=== PATIENT | female | born 1980 | race Two or more races ===

== ENCOUNTER → 2020-03-09 12:35 | Outpatient (BNVA) | payer OTHER, SELFPAY | PROVIDERS: PCP Pediatrics; Visit Provider Physician Assistant | DX: K91.2 Postsurgical malabsorption, not elsewhere classified (principal); Z90.3 Acquired absence of stomach [part of] | CPT/HCPCS: 99202 ==

== ENCOUNTER 2020-03-11 08:20 | Outpatient (REF) | payer OTHER, SELFPAY ==
[2020-03-11 10:05] LABS: MANUAL DIFF FLAG NO
[2020-03-11 10:09] LABS: Basophils Percent Auto 0.5 % (0-2); Eosinophils Absolute Auto 0.1 X10*3/uL (0.0-0.4); Eosinophils Percent Auto 1.5 % (0-4); Hematocrit 40.5 % (37-47); Hemoglobin 13.5 g/dl (12.0-16.0); Imm Gran Abs Auto 0.01 X10*3/uL (0.00-0.03); Imm Gran Pct Auto 0.2 % (0.0-0.4); Lymphocytes Percent Auto 33.9 % (20-40); Mean Corpuscular HGB Conc 33.3 g/dl (31.0-35.0); Mean Corpuscular Hemoglobin 29.7 pg (27.0-33.0); Mean Platelet Volume 9.5 fL (9.4-12.3); Monocytes Absolute Auto 0.3 X10*3/uL (0.1-1.2); Monocytes Percent Auto 4.3 % (2-11); Neutrophils Absolute Auto 3.5 X10*3/uL (2.0-8.3); Neutrophils Percent Auto 59.6 % (45-73); Platelet Count 302 X10*3/uL (160-400); Red Blood Count 4.55 X10*6/uL (4.20-5.50); Red Cell Distribution Width 11.7 % (11.0-16.0); White Blood Count 5.8 X10*3/uL (4.8-10.8)
[2020-03-11 10:22] LABS: Estimated Average Glucose 94 mg/dL; Hemoglobin A1c % 4.9 %
[2020-03-11 10:44] LABS: Alanine Aminotransferase 9 U/L (0-31); Albumin Level 4.7 g/dL (3.5-5.0); Alkaline Phosphatase 83 U/L (39-117); Anion Gap 16 (12-20); Aspartate Amino Transferase 16 U/L (5-31); Bilirubin Total 0.6 mg/dL (0.0-1.0); Blood Urea Nitrogen 8 mg/dL (9-16); C Reactive Protein 0.25 mg/dL (< or = 0.50); Calcium 9.3 mg/dL (8.4-10.2); Carbon Dioxide 25 mmol/L (22-29); Chloride 102 mmol/L (96-108); Cholesterol 192 mg/dL; Estimated Glomerular Filt Rate > 60; Glucose Fasting 91 mg/dL (60-99); HDL Cholesterol 82 mg/dL; Iron 108 mcg/dL (30-160); LDL Cholesterol Calculated 95 mg/dl; Percent Iron Saturation 29 % (15-50); Sodium 139 mmol/L (135-145); Total Iron Binding Capacity 374 mcg/dL (228-428); Total Protein 8.4 g/dL (6.5-8.0); Triglycerides 76 mg/dL; Unsaturated Iron Binding 266 ug/dL
[2020-03-11 11:03] LABS: Vitamin D 25-OH Total 20.6 ng/mL (>30)
[2020-03-11 11:08] LABS: Folate 6.9 ng/mL (> or = 4.0); Vitamin B12 1684 pg/mL (200-900)
[2020-03-11 11:33] LABS: Ferritin 76 ng/mL (10-122)
[2020-03-14 17:13] LABS: Calcium (PTHI) 9.8 mg/dL (8.6-10.2); PTHI 49 pg/mL (14-64)
[2020-03-14 17:56] LABS: Insulin Level Total 4.8 uIU/mL
[2020-03-15 06:47] LABS: Zinc 85 mcg/dL (60-130)
[2020-03-16 05:57] LABS: Vitamin B1 7 nmol/L (8-30)
[2020-03-17 13:23] LABS: Vitamin A 32 mcg/dL (38-98)
== END 2020-03-11 08:21 | disposition home or self-care (01) ==
LOC: HO.LAB 08:20
PROVIDERS: Absent Provider Physician Assistant; PCP Pediatrics; Visit Provider Dietitian, Registered
DX: K91.2 Postsurgical malabsorption, not elsewhere classified (principal); Z90.3 Acquired absence of stomach [part of]; Z98.84 Bariatric surgery status
CPT/HCPCS: 36415; 80053; 80061; 82306; 82607; 82728; 82746; 83036; 83525; 83540; 83970; 84425; 84443; 84590; 84630; 85025; 86140

== ENCOUNTER → 2020-03-23 08:11 | Outpatient (BNVA) | payer OTHER, SELFPAY | PROVIDERS: PCP Pediatrics; Visit Provider Dietitian, Registered ==

== ENCOUNTER 2020-06-02 09:48 | Outpatient (REF) | payer OTHER, SELFPAY ==
[2020-06-02 17:15] LABS: Vitamin D 25-OH Total 26.5 ng/mL (>30)
[2020-06-02 17:25] LABS: Folate 9.2 ng/mL (> or = 4.0); Vitamin B12 849 pg/mL (200-900)
[2020-06-06 06:27] LABS: Vitamin B1 7 nmol/L (8-30)
[2020-06-06 12:21] LABS: Vitamin A 44 mcg/dL (38-98)
== END 2020-06-02 09:49 | disposition home or self-care (01) ==
LOC: HO.LAB 09:48
PROVIDERS: PCP Pediatrics; Visit Provider Physician Assistant
DX: K91.2 Postsurgical malabsorption, not elsewhere classified (principal); E56.9 Vitamin deficiency, unspecified; Z90.3 Acquired absence of stomach [part of]; Z98.84 Bariatric surgery status
CPT/HCPCS: 36415; 82306; 82607; 82746; 84425; 84590

== ENCOUNTER → 2020-07-14 07:49 | Outpatient (BNVA) | payer OTHER, SELFPAY | PROVIDERS: PCP Pediatrics; Visit Provider Internal Medicine Endocrinology, Diabetes & Metabolism | DX: L68.0 Hirsutism (principal) | CPT/HCPCS: 99202 ==

== ENCOUNTER → 2020-11-03 08:04 | Outpatient (BNVA) | payer OTHER, SELFPAY | PROVIDERS: PCP Pediatrics; Visit Provider Dietitian, Registered | DX: Z98.84 Bariatric surgery status (principal) | CPT/HCPCS: 97803 ==

== ENCOUNTER 2021-03-09 15:54 | Outpatient (REF) | payer OTHER, SELFPAY ==
[2021-03-09 17:10] LABS: MANUAL DIFF FLAG NO
[2021-03-09 17:28] LABS: Basophils Percent Auto 0.3 % (0-2); Eosinophils Absolute Auto 0.2 X10*3/uL (0.0-0.4); Hematocrit 39.5 % (37.0-47.0); Hemoglobin 13.1 g/dl (12.0-16.0); Imm Gran Abs Auto 0.03 X10*3/uL (0.00-0.03); Imm Gran Pct Auto 0.3 % (0.0-0.4); Mean Corpuscular HGB Conc 33.2 g/dl (31.0-35.0); Mean Corpuscular Hemoglobin 30.3 pg (27.0-33.0); Mean Corpuscular Volume 91.2 fL (80.0-98.0); Mean Platelet Volume 10.2 fL (9.4-12.3); Monocytes Absolute Auto 0.4 X10*3/uL (0.1-1.2); Monocytes Percent Auto 4.2 % (2-11); Neutrophils Absolute Auto 5.7 x10*3/uL (2.0-8.3); Neutrophils Percent Auto 61.2 % (45-73); Platelet Count 218 X10*3/uL (160-400); Red Blood Count 4.33 X10*6/uL (4.20-5.50); Red Cell Distribution Width 12.5 % (11.0-16.0); White Blood Count 9.3 X10*3/uL (4.8-10.8)
[2021-03-09 17:44] LABS: Anion Gap 11 (12-20); Blood Urea Nitrogen 9 mg/dL (9-16); Calcium 9.5 mg/dL (8.4-10.2); Carbon Dioxide 27 mmol/L (22-29); Chloride 106 mmol/L (96-108); Estimated Glomerular Filt Rate > 60; Glucose Random 78 mg/dL (60-115); Iron 108 mcg/dL (30-160); Percent Iron Saturation 29 % (15-50); Potassium 3.9 mmol/L (3.3-5.1); Sodium 140 mmol/L (135-145); Total Iron Binding Capacity 372 mcg/dL (228-428); Triglycerides 65 mg/dL; Unsaturated Iron Binding 264 ug/dL
[2021-03-09 17:45] LABS: Cholesterol 199 mg/dL; HDL Cholesterol 74 mg/dL; LDL Cholesterol Calculated 112 mg/dl
[2021-03-09 17:46] LABS: Estimated Average Glucose 94 mg/dL; Hemoglobin A1c % 4.9 %
[2021-03-09 18:05] LABS: Ferritin 228 ng/mL (10-250); TSH reflex Free T4 0.48 uIU/mL (0.32-4.0); Vitamin D 25-OH Total 18.7 ng/mL (>30)
[2021-03-09 18:27] LABS: Folate 6.8 ng/mL (> or = 4.0); Vitamin B12 > 2000 pg/mL (200-900)
[2021-03-10 12:21] LABS: Calcium (PTHI) 9.1 mg/dL (8.6-10.2); PTHI 83 pg/mL (14-64)
[2021-03-14 01:27] LABS: Zinc 53 mcg/dL (60-130)
[2021-03-16 00:20] LABS: Vitamin A 37 mcg/dL (38-98)
[2021-03-16 12:22] LABS: Vitamin B1 6 nmol/L (8-30)
== END 2021-03-09 15:55 | disposition home or self-care (01) ==
LOC: HO.LAB 15:54
PROVIDERS: PCP Pediatrics; Visit Provider Physician Assistant Surgical
DX: K91.2 Postsurgical malabsorption, not elsewhere classified (principal); L65.9 Nonscarring hair loss, unspecified; Z90.3 Acquired absence of stomach [part of]; Z79.899 Other long term (current) drug therapy
CPT/HCPCS: 36415; 80048; 80061; 82306; 82607; 82728; 82746; 83036; 83540; 83970; 84425; 84443; 84590; 84630; 85025; 99212

== ENCOUNTER → 2021-04-12 08:23 | Outpatient (BNVA) | payer OTHER, SELFPAY | PROVIDERS: PCP Pediatrics; Visit Provider Physician Assistant Surgical | DX: K91.2 Postsurgical malabsorption, not elsewhere classified (principal); Z90.3 Acquired absence of stomach [part of] ==

== ENCOUNTER 2023-01-16 11:42 | Outpatient (AMB) | payer OTHER, SELFPAY ==
--- NOTE | 2023-01-16 11:43 | A.OFFVIS_ITS ---
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 No complications after surgery, had follow up with the clinic over the phone. Called and emailed her every week. Liquid diet for a month, then advanced diet. Last seen in the office in April 2021. At that time, she had a stable weight and was going to follow-up with her primary care physician and chinese medicine practitioner. Since last being seen, she has done well and is looking to get yearly labs done. She has no complaints at this time. She is followed by [facility] hematology for iron deficiency and her last infusion was about a year ago. 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 Surgical History History of sleeve gastrectomy Family History Father Diabetes mellitus Hypertension Mother Pre-diabetes Emotional hypersensitivity Sister Asthma Sister Diabetes mellitus Son Asthma Daughter Autism Social History Alcohol intake: current Alcohol intake frequency: holidays/special occasions only Patient Tobacco Use Status: Never used Tobacco Review of Systems Const All systems reviewed & are unremarkable except as noted in HPI and below Physical Exam Const General: healthy appearing and no acute distress Resp Effort & Inspection: normal respiratory effort Auscultation: clear to auscultation bilaterally Cardio Rate: regular rate Rhythm: regular rhythm GI Auscultation: normal bowel sounds Extrem General: Yes normal to inspection Assessment & Plan Assessment & Plan (1) S/P laparoscopic sleeve gastrectomy: Code(s): Z98.84 - Bariatric surgery status Plan: Status post sleeve gastrectomy performed in [place] in 2018. She returns to the office for follow-up as she is requesting follow up labs, yearly. She is doing well. Continue meal plan and exercise plan rtc 1 year Orders: Orders Lipid Panel Today E51.9 - Thiamine deficiency, unspecified, K91.2 - Postsurgical malabsorption, not elsewhere classified, Z90.3 - Acquired absence of stomach [part of], Z98.84 - Bariatric surgery status Vitamin B12 and Folate Today E51.9 - Thiamine deficiency, unspecified, K91.2 - Postsurgical malabsorption, not elsewhere classified, Z90.3 - Acquired absence of stomach [part of], Z98.84 - Bariatric surgery status Vitamin A Today E51.9 - Thiamine deficiency, unspecified, K91.2 - Postsurgical malabsorption, not elsewhere classified, Z90.3 - Acquired absence of stomach [part of], Z98.84 - Bariatric surgery status C Reactive Protein Today E51.9 - Thiamine deficiency, unspecified, K91.2 - Postsurgical malabsorption, not elsewhere classified, Z90.3 - Acquired absence of stomach [part of], Z98.84 - Bariatric surgery status PTHI Today E51.9 - Thiamine deficiency, unspecified, K91.2 - Postsurgical malabsorption, not elsewhere classified, Z90.3 - Acquired absence of stomach [part of], Z98.84 - Bariatric surgery status Insulin Today E51.9 - Thiamine deficiency, unspecified, K91.2 - Postsurgical malabsorption, not elsewhere classified, Z90.3 - Acquired absence of stomach [part of], Z98.84 - Bariatric surgery status IRON PROFILE Today E51.9 - Thiamine deficiency, unspecified, K91.2 - Postsurgical malabsorption, not elsewhere classified, Z90.3 - Acquired absence of stomach [part of], Z98.84 - Bariatric surgery status Complete Blood Count Auto Diff Today E51.9 - Thiamine deficiency, unspecified, K91.2 - Postsurgical malabsorption, not elsewhere classified, Z90.3 - Acquired absence of stomach [part of], Z98.84 - Bariatric surgery status Zinc Today E51.9 - Thiamine deficiency, unspecified, K91.2 - Postsurgical malabsorption, not elsewhere classified, Z90.3 - Acquired absence of stomach [part of], Z98.84 - Bariatric surgery status Vitamin B1 Today E51.9 - Thiamine deficiency, unspecified, K91.2 - Postsurgical malabsorption, not elsewhere classified, Z90.3 - Acquired absence of stomach [part of], Z98.84 - Bariatric surgery status Ferritin Today E51.9 - Thiamine deficiency, unspecified, K91.2 - Postsurgical malabsorption, not elsewhere classified, Z90.3 - Acquired absence of stomach [part of], Z98.84 - Bariatric surgery status TSH reflex Free T4 Today E51.9 - Thiamine deficiency, unspecified, K91.2 - Postsurgical malabsorption, not elsewhere classified, Z90.3 - Acquired absence of stomach [part of], Z98.84 - Bariatric surgery status Vitamin D 25-OH Total Today E51.9 - Thiamine deficiency, unspecified, K91.2 - Postsurgical malabsorption, not elsewhere classified, Z90.3 - Acquired absence of stomach [part of], Z98.84 - Bariatric surgery status Hemoglobin A1c Today E51.9 - Thiamine deficiency, unspecified, K91.2 - Postsurgical malabsorption, not elsewhere classified, Z90.3 - Acquired absence of stomach [part of], Z98.84 - Bariatric surgery status Basic Metabolic Panel Today E51.9 - Thiamine deficiency, unspecified, K91.2 - Postsurgical malabsorption, not elsewhere classified, Z90.3 - Acquired absence of stomach [part of], Z98.84 - Bariatric surgery status Coding Level of Care Code Est Pt Level 3 (69285) Diagnoses S/P laparoscopic sleeve gastrectomy Z98.84
[2023-01-16 11:51] VITALS: BP 131/61; PULSE 83; TEMP 36.3; O2SAT 96; BMI 24.0
== END 2023-01-16 12:14 | disposition home or self-care (01) ==
PROVIDERS: PCP Pediatrics; Visit Provider Physician Assistant Surgical
DX: K91.2 Postsurgical malabsorption, not elsewhere classified (principal); Z90.3 Acquired absence of stomach [part of]; Z98.84 Bariatric surgery status
CPT/HCPCS: 99213

== ENCOUNTER → 2023-01-16 11:42 | Outpatient (BNVA) | payer OTHER, SELFPAY | PROVIDERS: PCP Pediatrics; Visit Provider Physician Assistant Surgical | DX: Z98.84 Bariatric surgery status (principal) | CPT/HCPCS: 99212 ==

== ENCOUNTER 2023-01-30 09:02 | Outpatient (REF) | payer OTHER, SELFPAY ==
[2023-01-30 09:46] LABS: MANUAL DIFF FLAG NO
[2023-01-30 09:57] LABS: Basophils Percent Auto 0.5 % (0-2); Eosinophils Absolute Auto 0.1 X10*3/uL (0.0-0.4); Eosinophils Percent Auto 1.3 % (0-4); Hematocrit 40.3 % (37.0-47.0); Hemoglobin 13.4 g/dl (12.0-16.0); Imm Gran Abs Auto 0.01 X10*3/uL (0.00-0.03); Imm Gran Pct Auto 0.2 % (0.0-0.4); Lymphocytes Percent Auto 33.9 % (20-40); Mean Corpuscular HGB Conc 33.3 g/dl (31.0-35.0); Mean Corpuscular Hemoglobin 29.3 pg (27.0-33.0); Mean Corpuscular Volume 88.2 fL (80.0-98.0); Mean Platelet Volume 8.8 fL (9.4-12.3); Monocytes Absolute Auto 0.4 X10*3/uL (0.1-1.2); Monocytes Percent Auto 6.2 % (2-11); Neutrophils Absolute Auto 3.5 x10*3/uL (2.0-8.3); Neutrophils Percent Auto 57.9 % (45-73); Platelet Count 318 X10*3/uL (160-400); Red Blood Count 4.57 X10*6/uL (4.20-5.50); Red Cell Distribution Width 12.3 % (11.0-16.0)
[2023-01-30 10:42] LABS: Estimated Average Glucose 97 mg/dL; Hemoglobin A1C 111.0874 umol/L
[2023-01-30 10:56] LABS: Anion Gap 10 (12-20); Blood Urea Nitrogen 8 mg/dL (9-16); Calcium 9.1 mg/dL (8.4-10.2); Carbon Dioxide 30 mmol/L (22-29); Chloride 103 mmol/L (96-108); Cholesterol 206 mg/dL (<200); Estimated Glomerular Filt Rate > 60; Glucose Random 89 mg/dL (60-115); HDL Cholesterol 69 mg/dL (>40); Iron 98 mcg/dL (30-160); LDL Cholesterol Calculated 121 mg/dL (<100); Percent Iron Saturation 31 % (15-50); Potassium 3.6 mmol/L (3.3-5.1); Sodium 139 mmol/L (135-145); Total Iron Binding Capacity 314 mcg/dL (228-428); Triglycerides 80 mg/dL (<150); Unsaturated Iron Binding 216 ug/dL
[2023-01-30 11:07] LABS: Folate 7.8 ng/mL (> or = 4.0); Vitamin B12 1567 pg/mL (200-900)
[2023-01-30 11:28] LABS: Ferritin 121 ng/mL (10-250); TSH reflex Free T4 0.83 uIU/mL (0.32-4.0); Vitamin D 25-OH Total 16.8 ng/mL (>30)
[2023-01-30 12:01] LABS: Insulin 6 uU/mL (2-29)
[2023-02-01 15:54] LABS: Zinc 76 mcg/dL (60-130)
[2023-02-02 22:24] LABS: Vitamin A 38 mcg/dL (38-98)
[2023-02-03 12:18] LABS: Vitamin B1 6 nmol/L (8-30)
== END 2023-01-30 09:03 | disposition home or self-care (01) ==
LOC: HO.LAB 09:02
PROVIDERS: Visit Provider Physician Assistant Surgical
DX: E51.9 Thiamine deficiency, unspecified (principal); K91.2 Postsurgical malabsorption, not elsewhere classified; Z90.3 Acquired absence of stomach [part of]; Z98.84 Bariatric surgery status
CPT/HCPCS: 36415; 80048; 80061; 82306; 82607; 82728; 82746; 83036; 83525; 83540; 84425; 84443; 84590; 84630; 85025; 86140

== ENCOUNTER 2024-02-12 09:30 | Outpatient (AMB) | payer OTHER, SELFPAY ==
--- NOTE | 2024-02-12 09:09 | A.OFFVIS_ITS ---
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 No complications after surgery, had follow up with the clinic over the phone. Called and emailed her every week. Liquid diet for a month, then advanced diet. Weight today is 135.3 pounds with a BMI of 23.9 Since last being seen, she has done well and is looking to get yearly labs done. She has no complaints at this time. She is followed by [facility] hematology for iron deficiency and her last infusion was about a year ago. 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 Surgical History History of sleeve gastrectomy Family History Father Diabetes mellitus Hypertension Mother Pre-diabetes Emotional hypersensitivity Sister Asthma Sister Diabetes mellitus Son Asthma Daughter Autism Social History Alcohol intake: current Alcohol intake frequency: holidays/special occasions only Patient Tobacco Use Status: Never used Tobacco Telehealth Telehealth Telehealth Platform: Telephone Location of provider rendering services: practice address Location of patient: address on file Patient Identification confirmed using: Name, : Yes Telehealth method: voice only Patient verbally consented to treatment: Yes Patient verbally consented to billing insurance company: Yes Patient informed of any privacy concerns related to visit: Yes Minutes spent on Phone/Video with Pt.: 15 Assessment & Plan Assessment & Plan (1) S/P laparoscopic sleeve gastrectomy: Code(s): Z98.84 - Bariatric surgery status Category: Surgical Plan: Patient is doing very well, maintaining a stable and healthy weight. Check 1 year follow-up labs as she has a proximally 6 years 6 months post sleeve gastrectomy performed at an outside institution. She is taking a multivitamin daily although no further vitamin supplements. Should she show any further vitamin deficiencies, we will alert her and prescribed as indicated. Orders: Orders Insulin Today E51.9 - Thiamine deficiency, unspecified, E56.9 - Vitamin deficiency, unspecified, K91.2 - Postsurgical malabsorption, not elsewhere classified, Z90.3 - Acquired absence of stomach [part of], Z98.84 - Bariatric surgery status IRON PROFILE Today E51.9 - Thiamine deficiency, unspecified, E56.9 - Vitamin deficiency, unspecified, K91.2 - Postsurgical malabsorption, not elsewhere classified, Z90.3 - Acquired absence of stomach [part of], Z98.84 - Bariatric surgery status Comprehensive Met. Panel Today E51.9 - Thiamine deficiency, unspecified, E56.9 - Vitamin deficiency, unspecified, K91.2 - Postsurgical malabsorption, not elsewhere classified, Z90.3 - Acquired absence of stomach [part of], Z98.84 - Bariatric surgery status Vitamin A Today E51.9 - Thiamine deficiency, unspecified, E56.9 - Vitamin deficiency, unspecified, K91.2 - Postsurgical malabsorption, not elsewhere classified, Z90.3 - Acquired absence of stomach [part of], Z98.84 - Bariatric surgery status TSH reflex Free T4 Today E51.9 - Thiamine deficiency, unspecified, E56.9 - Vitamin deficiency, unspecified, K91.2 - Postsurgical malabsorption, not elsewhere classified, Z90.3 - Acquired absence of stomach [part of], Z98.84 - Bariatric surgery status Hemoglobin A1c Today E51.9 - Thiamine deficiency, unspecified, E56.9 - Vitamin deficiency, unspecified, K91.2 - Postsurgical malabsorption, not elsewhere classified, Z90.3 - Acquired absence of stomach [part of], Z98.84 - Bariatric surgery status Complete Blood Count Auto Diff Today E51.9 - Thiamine deficiency, unspecified, E56.9 - Vitamin deficiency, unspecified, K91.2 - Postsurgical malabsorption, not elsewhere classified, Z90.3 - Acquired absence of stomach [part of], Z98.84 - Bariatric surgery status Lipid Panel Today E51.9 - Thiamine deficiency, unspecified, E56.9 - Vitamin deficiency, unspecified, K91.2 - Postsurgical malabsorption, not elsewhere clas sified, Z90.3 - Acquired absence of stomach [part of], Z98.84 - Bariatric surgery status Vitamin B12 and Folate Today E51.9 - Thiamine deficiency, unspecified, E56.9 - Vitamin deficiency, unspecified, K91.2 - Postsurgical malabsorption, not elsewhere classified, Z90.3 - Acquired absence of stomach [part of], Z98.84 - Bariatric surgery status Zinc Today E51.9 - Thiamine deficiency, unspecified, E56.9 - Vitamin deficiency, unspecified, K91.2 - Postsurgical malabsorption, not elsewhere classified, Z90.3 - Acquired absence of stomach [part of], Z98.84 - Bariatric surgery status C Reactive Protein Today E51.9 - Thiamine deficiency, unspecified, E56.9 - Vitamin deficiency, unspecified, K91.2 - Postsurgical malabsorption, not elsewhere classified, Z90.3 - Acquired absence of stomach [part of], Z98.84 - Bariatric surgery status Vitamin B1 Today E51.9 - Thiamine deficiency, unspecified, E56.9 - Vitamin deficiency, unspecified, K91.2 - Postsurgical malabsorption, not elsewhere classified, Z90.3 - Acquired absence of stomach [part of], Z98.84 - Bariatric surgery status Ferritin Today E51.9 - Thiamine deficiency, unspecified, E56.9 - Vitamin deficiency, unspecified, K91.2 - Postsurgical malabsorption, not elsewhere classified, Z90.3 - Acquired absence of stomach [part of], Z98.84 - Bariatric surgery status Vitamin D 25-OH Total Today E51.9 - Thiamine deficiency, unspecified, E56.9 - Vitamin deficiency, unspecified, K91.2 - Postsurgical malabsorption, not elsewhere classified, Z90.3 - Acquired absence of stomach [part of], Z98.84 - Bariatric surgery status
[2024-02-12 09:34] VITALS: BMI 23.9
== END 2024-02-12 09:54 | disposition home or self-care (01) ==
LOC: HO.HBS 09:42
PROVIDERS: PCP Pediatrics; Visit Provider Physician Assistant Surgical
DX: E51.9 Thiamine deficiency, unspecified (principal); E56.9 Vitamin deficiency, unspecified; K91.2 Postsurgical malabsorption, not elsewhere classified; Z98.84 Bariatric surgery status
CPT/HCPCS: 99213; G2211

== ENCOUNTER → 2024-02-12 09:30 | Outpatient (BNVA) | payer OTHER, SELFPAY | PROVIDERS: PCP Pediatrics; Visit Provider Physician Assistant Surgical | DX: K91.2 Postsurgical malabsorption, not elsewhere classified (principal); Z90.3 Acquired absence of stomach [part of]; E51.9 Thiamine deficiency, unspecified; E56.9 Vitamin deficiency, unspecified; Z98.84 Bariatric surgery status ==

== ENCOUNTER 2024-02-22 10:06 | Outpatient (REF) | payer OTHER, SELFPAY ==
[2024-02-22 10:36] LABS: MANUAL DIFF FLAG NO
[2024-02-22 10:39] LABS: Basophils Percent Auto 0.3 % (0-2); Eosinophils Absolute Auto 0.1 X10*3/uL (0.0-0.4); Eosinophils Percent Auto 0.6 % (0-4); Hematocrit 35.3 % (37.0-47.0); Hemoglobin 11.7 g/dl (12.0-16.0); Imm Gran Abs Auto 0.02 X10*3/uL (0.00-0.03); Imm Gran Pct Auto 0.2 % (0.0-0.4); Lymphocytes Absolute Auto 1.9 X10*3/uL (1.2-4.9); Lymphocytes Percent Auto 20.2 % (20-40); Mean Corpuscular HGB Conc 33.1 g/dl (31.0-35.0); Mean Corpuscular Hemoglobin 29.7 pg (27.0-33.0); Mean Corpuscular Volume 89.6 fL (80.0-98.0); Monocytes Absolute Auto 0.5 X10*3/uL (0.1-1.2); Monocytes Percent Auto 4.7 % (2-11); Neutrophils Absolute Auto 7.1 x10*3/uL (2.0-8.3); Platelet Count 268 X10*3/uL (160-400); Red Blood Count 3.94 X10*6/uL (4.20-5.50); White Blood Count 9.5 X10*3/uL (4.8-10.8)
[2024-02-22 10:48] LABS: Estimated Average Glucose 88 mg/dL; Hemoglobin A1C 87.2443 umol/L; Hemoglobin A1c % 4.7 % (<6.0)
[2024-02-22 10:55] LABS: Alanine Aminotransferase 15 U/L (0-31); Albumin Level 4.3 g/dL (3.5-5.0); Alkaline Phosphatase 85 U/L (39-117); Anion Gap 12 (12-20); Aspartate Amino Transferase 22 U/L (5-31); Bilirubin Total 0.7 mg/dL (0.0-1.0); Blood Urea Nitrogen 6 mg/dL (9-16); C Reactive Protein 0.64 mg/dL (< or = 0.50); Calcium 8.6 mg/dL (8.4-10.2); Carbon Dioxide 26 mmol/L (22-29); Chloride 106 mmol/L (96-108); Cholesterol 169 mg/dL (<200); Estimated Glomerular Filt Rate > 60; Glucose Random 74 mg/dL (60-115); HDL Cholesterol 75 mg/dL (>40); Iron 73 mcg/dL (30-160); LDL Cholesterol Calculated 82 mg/dL (<100); Percent Iron Saturation 24 % (15-50); Potassium 3.5 mmol/L (3.3-5.1); Sodium 140 mmol/L (135-145); Total Iron Binding Capacity 304 mcg/dL (228-428); Total Protein 7.8 g/dL (6.5-8.0); Triglycerides 64 mg/dL (<150); Unsaturated Iron Binding 231 ug/dL
[2024-02-22 11:18] LABS: Ferritin 94 ng/mL (10-250); TSH reflex Free T4 0.52 uIU/mL (0.32-4.0); Vitamin D 25-OH Total 14.6 ng/mL (>30)
[2024-02-22 11:28] LABS: Insulin 4 uU/mL (2-29)
[2024-02-22 11:29] LABS: Folate 3.8 ng/mL (> or = 4.0); Vitamin B12 491 pg/mL (200-900)
[2024-02-26 03:14] LABS: Zinc 83 mcg/dL (60-130)
[2024-02-26 18:39] LABS: Vitamin A 36 mcg/dL (38-98)
[2024-02-29 07:43] LABS: Vitamin B1 7 nmol/L (8-30)
== END 2024-02-22 10:07 | disposition home or self-care (01) ==
LOC: HO.LAB 10:06
PROVIDERS: Visit Provider Physician Assistant Surgical
DX: K91.2 Postsurgical malabsorption, not elsewhere classified (principal); Z90.3 Acquired absence of stomach [part of]; E51.9 Thiamine deficiency, unspecified; E56.9 Vitamin deficiency, unspecified; Z98.84 Bariatric surgery status
CPT/HCPCS: 36415; 80053; 80061; 82306; 82607; 82728; 82746; 83036; 83525; 83540; 84425; 84443; 84590; 84630; 85025; 86140

== ENCOUNTER 2025-02-08 10:28 | Outpatient (AMB) | payer OTHER, SELFPAY ==
--- NOTE | 2025-02-08 09:58 | MHC.OFFVISWM ---
VS Expanded 02/08/25 10:00 Height 5 ft 3 in Weight 138 lb BMI 24.4 Intake Visit Reasons: (TV) PO LSG 08/09/17 Allergies No Known Allergies Allergy (Verified 03/09/21 16:11) Medication List - Last Reconciled 02/08/25 by TATI Mcclain epinephrine bitartrate 0.3 mcg/actuation 1 puff inhalation Q3H PRN HPI Comments Details: 43 yo female s/p LSG 08/09/17 in [facility] (was down there for 4 days, was in the hospital for 2 nights). No complications after surgery, had follow up with the clinic over the phone. Called and emailed her every week. Liquid diet for a month, then advanced diet. Weight today is 138 pounds with a BMI of 24.4. Since last being seen, she has done well. She has no major complaints at this time. She is followed by [facility] hematology for iron deficiency and her last infusion was about 2 years ago; last saw them in office about a year ago. She notes some hair loss recently. 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 Surgical History History of sleeve gastrectomy Family History Father Diabetes mellitus Hypertension Mother Pre-diabetes Emotional hypersensitivity Sister Asthma Sister Diabetes mellitus Son Asthma Daughter Autism Social History Alcohol intake: current Alcohol intake frequency: holidays/special occasions only Patient Tobacco Use Status: Never used Tobacco Telehealth Telehealth Telehealth Platform: Telephone Location of provider rendering services: practice address Location of patient: address on file Patient Identification confirmed using: Name, : Yes Telehealth method: voice only Patient verbally consented to treatment: Yes Patient verbally consented to billing insurance company: Yes Patient informed of any privacy concerns related to visit: Yes Minutes spent on Phone/Video with Pt.: 15 Assessment & Plan Assessment & Plan (1) S/P laparoscopic sleeve gastrectomy: Code(s): Z98.84 - Bariatric surgery status Category: Surgical Plan She is doing well maintaining a healthy weight. Annual labs ordered. Depending on results may need referral back to hematology. Should start vitamin but we can discuss appropriate regimen based on lab results. RTC 1 year TV. Orders: Orders Complete Blood Count Auto Diff Today Z98.84 - Bariatric surgery status TSH reflex Free T4 Today Z98.84 - Bariatric surgery status C Reactive Protein Today Z98.84 - Bariatric surgery status Ferritin Today Z98.84 - Bariatric surgery status Vitamin D 25-OH Total Today Z98.84 - Bariatric surgery status Zinc Today Z98.84 - Bariatric surgery status Vitamin B12 and Folate Today Z98.84 - Bariatric surgery status Lipid Panel Today Z98.84 - Bariatric surgery status Insulin Today Z98.84 - Bariatric surgery status Comprehensive Met. Panel Today Z98.84 - Bariatric surgery status Vitamin B1 Today Z98.84 - Bariatric surgery status Vitamin A Today Z98.84 - Bariatric surgery status IRON PROFILE Today Z98.84 - Bariatric surgery status Hemoglobin A1c Today Z98.84 - Bariatric surgery status
[2025-02-08 10:00] VITALS: BMI 24.4
== END 2025-02-08 10:30 | disposition home or self-care (01) ==
LOC: HO.HBS 10:28
PROVIDERS: PCP Physician Assistant Medical; Visit Provider Physician Assistant Surgical
DX: Z71.3 Dietary counseling and surveillance (principal); Z90.3 Acquired absence of stomach [part of]; Z98.84 Bariatric surgery status
CPT/HCPCS: 98014

== ENCOUNTER 2025-02-12 09:06 | Outpatient (REF) | payer OTHER, SELFPAY ==
[2025-02-12 09:23] LABS: MANUAL DIFF FLAG NO
[2025-02-12 10:10] LABS: Hematocrit 37.6 % (37.0-47.0); Hemoglobin 12.3 g/dl (12.0-16.0); Imm Gran Abs Auto 0.01 X10*3/uL (0.00-0.03); Imm Gran Pct Auto 0.2 % (0.0-0.4); Lymphocytes Absolute Auto 2.6 X10*3/uL (1.2-4.9); Mean Corpuscular HGB Conc 32.7 g/dl (31.0-35.0); Mean Corpuscular Hemoglobin 29.4 pg (27.0-33.0); Mean Corpuscular Volume 89.7 fL (80.0-98.0); NRBC Abs Auto 0.000 X10*3/uL (0.0-0.012); NRBC Pct Auto 0.0 /100WBC (0.0-0.2); Platelet Count 302 X10*3/uL (160-400); Red Blood Count 4.19 X10*6/uL (4.20-5.50); White Blood Count 6.3 X10*3/uL (4.8-10.8)
[2025-02-12 10:33] LABS: Alanine Aminotransferase 16 U/L (0-31); Albumin Level 4.7 g/dL (3.5-5.0); Alkaline Phosphatase 83 U/L (39-117); Anion Gap 12 (12-20); Aspartate Amino Transferase 24 U/L (5-31); Blood Urea Nitrogen 11 mg/dL (9-16); Calcium 9.5 mg/dL (8.4-10.2); Carbon Dioxide 30 mmol/L (22-29); Chloride 104 mmol/L (96-108); Cholesterol 199 mg/dL (<200); Estimated Glomerular Filt Rate > 60; HDL Cholesterol 86 mg/dL (>40); Iron 125 mcg/dL (30-160); Percent Iron Saturation 36 % (15-50); Potassium 3.9 mmol/L (3.3-5.1); Sodium 142 mmol/L (135-145); Total Iron Binding Capacity 350 mcg/dL (228-428); Total Protein 7.9 g/dL (6.5-8.0); Triglycerides 76 mg/dL (<150); Unsaturated Iron Binding 225 ug/dL
[2025-02-12 10:58] LABS: Folate 5.9 ng/mL (> or = 4.0); Vitamin B12 304 pg/mL (200-900)
[2025-02-12 11:01] LABS: Ferritin 42 ng/mL (10-250)
== END 2025-02-12 09:07 | disposition home or self-care (01) ==
LOC: HO.LAB 09:06
PROVIDERS: PCP Physician Assistant Medical; Visit Provider Physician Assistant Surgical
DX: Z98.84 Bariatric surgery status (principal)
CPT/HCPCS: 36415; 80053; 80061; 82306; 82607; 82728; 82746; 83036; 83525; 83540; 84425; 84443; 84590; 84630; 85025; 86140